=== PATIENT | male | born 1965 | race Two or more races ===

== ENCOUNTER 2018-09-17 13:06 | Observation (INO) | payer OTHER ==
[2018-09-17] MEDS ORDERED: IBUPROFEN 600 MG TABLET (FP) PO ONE ×2 (13:52→14:23)
--- NOTE | 2018-09-17 13:54 | PDOC ---
History of Present Illness - General Chief Complaint: CVA/TIA Stated Complaint: NINI LEG PAIN/ HEADACHE Time Seen by Provider: 09/17/18 13:23 History Source: Patient Exam Limitations: Language Barrier - History of Present Illness Initial Comments: History is obtained from family member who speaks Angolan at bedside. [employer] Specialist phones were being used for another patient. 52 yo m w a pmh of HTN and DM presents to the ER with 3 primary complaints. Firstly, what caused him to come to the ER was this extreme left leg pain that he experienced last night. He states he has been experiencing bilateral leg pain for close to 6 months which he has seen his PCP for and takes nortryptline for pain control. The patient states that last night he experienced a left sided occipital headache and head numbness that was associated with a significant amount of left leg weakness, numbness, tingling, and paresthesias. Secondly, the patient states he has been experiencing on and off left sided chest pain over the past few months that is triggered by physical activity and radiates to his left jaw and down his left arm. The chest pain is occasionally associated with numbness of the left arm and nausea but no emesis and occasional diaphoresis. He endorses freuent episodes of palpitations, but he is currently not experiencing them. He denies having any prior cardiac confirmed history. Lastly, the patient states his left hand and left leg have been changing colors when he gets exposed cold weathers. He says it originally turns blue, sometimes red and takes a suly time to turn back to its normal color. The patient endorses a strong smoking history and has trudy smoking close to a pack per day for many years but he is not sure for exactly how long. The patient was also a former heavy alcohol abuser but states that he stopped drinking profusely 5 months prior. He denies any recent fevers, chills, infections, SOB, difficulty breathing, blurry vision, neck pain, back pain, dysuria, frequency, urgency, or vertigo. PCP: Dr. Xavier in [place] PSH: Left hand surgery Social Hx: Smokes 1 PPD, former alcohol abuser - stopped drinking 5 months ago, denies other substance usage Allergies: NKA, NKDA Past History - Past Medical History Allergies/Adverse Reactions: Allergies Allergy/AdvReac Type Severity Reaction Status Date / Time No Known Allergies Allergy Verified 02/18/19 13:16 COPD: No Diabetes: Yes HTN: Yes Other medical history: back problems - Suicide/Smoking/Psychosocial Hx Smoking History: Current every day smoker Number of Cigarettes Smoked Daily: 10 Information on smoking cessation initiated: No Review of Systems - Review of Systems Able to Perform ROS?: Yes Comments:: CONSTITUTIONAL: Absent: fever, no chills, no fatigue EYES: Absent: visual changes ENT: Absent: ear pain, no sore throat CARDIOVASCULAR: Present: Chest pain, palpitations RESPIRATORY: Absent: cough, no SOB GI: Absent: abdominal pain, no nausea, no vomiting, no constipation, no diarrhea GENITOURINARY: Absent: dysuria, no frequency, no hematuria MUSKULOSKELETAL: Absent: back pain, no arthralgia, no myalgia SKIN: Present: left hand/foot discoloration. NEURO: Present: headache *Physical Exam - Vital Signs Last Vital Signs Temp Pulse Resp BP Pulse Ox 98.4 F 111 H 18 108/70 100 09/17/18 13:18 09/17/18 13:18 09/17/18 13:18 09/17/18 13:18 09/17/18 13:18 - Physical Exam Comments: GENERAL: Well-appearing, well-nourished. No apparent distress. HEENT: Normocephalic, atraumatic. PERRL, EOM intact. CARDIOVASCULAR: Tachycardic rate. Normal S1, S2. Regular rhythm. No M/R/G PULMONARY: No evidence of respiratory distress. Lungs clear to auscultation bilaterally. No wheezing, rales or rhonchi. ABDOMEN: Soft, non-distended, non-tender. EXTREMITIES: The patient experiences pain upon gentle touch of the left leg. Left hand appears dusky blue compared to the right. Normal ROM in all four extremities. No gross deformities. SKIN: Warm, dry. NEUROLOGICAL: Alert, awake, appropriate. Cranial nerves 2-12 intact. No deficits to light touch in face, upper extremities and lower extremities. No motor deficits in the in face, upper extremities and lower extremities. Normoreflexic in the upper and lower extremities. Normal speech. Toes are down-going bilaterally. Gait is normal without ataxia. PSYCHIATRIC: Cooperative. Good eye contact. Appropriate mood and affect. Moderate Sedation - Procedure Monitoring Vital Signs: Procedure Monitoring Vital Signs Temperature 98.4 F 02/18/19 13:18 Pulse Rate 111 H 09/17/18 13:18 Respiratory Rate 18 09/17/18 13:18 Blood Pressure 108/70 09/17/18 13:18 O2 Sat by Pulse Oximetry (%) 100 09/17/18 13:18 Heart Score/ECG Review - History History: Moderately suspicious - Electrocardiogram EKG: Normal - Age Age: 45-65 - Risk Factors Risk Factors Heart Score: Yes Hx Hypertension, Yes Hx Diabetes, Yes Smoking History Based on the list above the patient has:: >/=3 risk factors or Hx atherosclerotic disease - Troponin Troponin: </= normal limit - Score Heart Score - Total: 4 - ECG Intrepretation Rhythm: Regular Rhythm - [place]: Normal - ST and T Early Repolarization: No - ECG Impressions Normal ECG: No Tachycardia: Sinus ED Treatment Course - LABORATORY CBC & Chemistry Diagram: 09/17/18 14:20 09/17/18 14:20 - RADIOLOGY Radiology Studies Ordered: Category Date Time Status HEAD CT (STROKE) [CT] Stat CT Scan 09/17/18 13:50 Ordered CHEST PA & LAT [RAD] Stat Radiology 09/17/18 13:50 Ordered Medical Decision Making - Medical Decision Making History is obtained from family member who speaks Angolan at bedside. [employer]ist phones were being used for another patient. 52 yo m w a pmh of HTN and DM presents to the ER with 3 primary complaints. Firstly, what caused him to come to the ER was this extreme left leg pain that he experienced last night. He states he has been experiencing bilateral leg pain for close to 6 months which he has seen his PCP for and takes nortryptline for pain control. The patient states that last night he experienced a left sided occipital headache and head numbness that was associated with a significant amount of left leg weakness, numbness, tingling, and paresthesias. Secondly, the patient states he has been experiencing on and off left sided chest pain over the past few months that is triggered by physical activity and radiates to his left jaw and down his left arm. The chest pain is occasionally associated with numbness of the left arm and nausea but no emesis and occasional diaphoresis. He endorses freuent episodes of palpitations, but he is currently not experiencing them. He denies having any prior cardiac confirmed history. Lastly, the patient states his left hand and left leg have been changing colors when he gets exposed cold weathers. He says it originally turns blue, sometimes red and takes a suly time to turn back to its normal color. The patient endorses a strong smoking history and has trudy smoking close to a pack per day for many years but he is not sure for exactly how long. The patient was also a former heavy alcohol abuser but states that he stopped drinking profusely 5 months prior. VS: Tachycardic DDx IBNLT: CVA/TIA, ACS/VA, Peripheral neuropathy secondary to diabetes, arrhythmia, buegers smoking vasculitis disease, angina, raynaud phenomenon. Plan: Labs, Urine, head ct, CXR, ekg, analgesia, re-assess. - This patient's leg pain is most likely secondary to a diabetic oeripheral neuropathy. Given severe intensity last night with consider r/o recent stroke. - Head CT does not show evidence of new stroke. - On and off chest discomfort sounds most suspicious to me to be stable angina. First trop negative. HEART score is 4. - Hand discoloration can be a result of his heavy smoking, possible buegers disease vs raynaud. Patient endorsed to Dr. Parsons to be admitted to Tele Obs - Cardio consult to Dr. Childs placed in the ED. - Vascular Consult placed to Dr. Lynch *DC/Admit/Observation/Transfer Diagnosis at time of Disposition: Chest pain, Leg pain, left, Discoloration of skin of hand - Discharge Dispostion Condition at time of disposition: Stable Decision to Admit order: Yes - Referrals - Patient Instructions - Post Discharge Activity
[2018-09-17 14:46] LABS: BASO % 0.6 % (0-2.0); EOS % 2.3 % (0-4.5); HEMATOCRIT 42.7 % (35.4-49); HEMOGLOBIN 14.6 GM/dL (11.7-16.9); MCH 29.8 pg (25.7-33.7); MCHC 34.2 g/dl (32.0-35.9); MEAN CELL VOLUME 87.4 fl (80-96); MEAN PLT VOLUME 9.1 fl (7.5-11.1); MONO % 9.6 % (3.8-10.2); NEUT % 59.5 % (42.8-82.8); PLATELET COUNT 261 K/MM3 (134-434); RBC 4.88 M/mm3 (4.00-5.60)
[2018-09-17 15:00] LABS: INR 0.98 (0.83-1.09); PROTHROMBIN TIME (PATIENT) 11.6 SEC (9.7-13.0)
[2018-09-17 15:03] LABS: ALBUMIN 3.6 g/dl (3.4-5.0); ALK PHOS 86 U/L (45-117); ANION GAP 8 MMOL/L (8-16); BILIRUBIN,TOTAL 0.2 mg/dL (0.2-1); BLOOD UREA NITROGEN 19 mg/dL (7-18); CALCIUM 8.4 mg/dL (8.5-10.1); CHLORIDE 104 mmol/L (98-107); CO2 27 mmol/L (21-32); CREATININE 0.8 mg/dL (0.55-1.3); GLUCOSE,RANDOM 163 mg/dL (74-106); MAGNESIUM 2.6 mg/dL (1.8-2.4); POTASSIUM 4.4 mmol/L (3.5-5.1); SGOT/AST 9 U/L (15-37); SGPT/ALT 22 U/L (13-61); SODIUM 139 mmol/L (136-145); TOT PROT 7.1 g/dl (6.4-8.2)
--- NOTE | 2018-09-17 16:15 | PDOC ---
Attending Attestation - Resident Resident Name: Rodolfo Kna - ED Attending Attestation I have performed the following: I have examined & evaluated the patient, The case was reviewed & discussed with the resident, I agree w/resident's findings & plan, Exceptions are as noted - Medical Decision Making 09/17/18 16:15 A portion of this note was documented by scribe services under my direction. I have reviewed the details of the note, within reason, and agree with the documentation with the following case summary and management plan written by me. Patient treated in the ED. Nursing notes are reviewed and incorporated into the medical decision-making. Vital signs reviewed. Peripheral IV access obtained by the nurse, laboratory studies are drawn and sent, reviewed and interpreted by myself. Vital Signs Temp Pulse Resp BP Pulse Ox 98.4 F 111 H 18 108/70 100 09/17/18 13:18 09/17/18 13:18 09/17/18 13:18 09/17/18 13:18 09/17/18 13:18 52-year-old male with history of hypertension diabetes and peripheral neuropathy presents with left arm pain and left leg pain and chest discomfort. The patient reports intermittent last several months off chest discomfort. Not always exertional. Not always shortness of breath. The pain would come and go for several minutes at a time. However, the patient noticed in the last week of having worsening left arm and left leg numbness and occasional pain. States that he noticed a discoloration of the left hand about a week ago. Not associated with chest pain. Did have a left-sided headache some time ago but currently denies any. Chest pain history seemed atypical for acute coronary syndrome. However, given that the patient has risk factors, rule out mild PR. Obtain labs, chest x-ray, EKG and troponin. Left arm numbness and left leg numbness is concerning for potential stroke. We'll obtain a head CT. However, with a dusky blue discoloration, could this be peripheral vascular disorder. However, the patient' s left hand is warm and appears to have cap refill. Could there be collaterals her condition?. The patient is a duplex and potentially CTA. However, the patient should be admitted for further evaluation. Reynaud was considered but seems unlikely given that is not cold and the patient's hand is dusky constantly. 09/17/18 16:32 CBC, BMP 09/17/18 14:20 09/17/18 14:20 CMP Sodium 139 mmol/L (136-145) 09/17/18 14:20 Potassium 4.4 mmol/L (3.5-5.1) 09/17/18 14:20 Chloride 104 mmol/L (98-107) 09/17/18 14:20 Carbon Dioxide 27 mmol/L (21-32) 09/17/18 14:20 Anion Gap 8 MMOL/L (8-16) 09/17/18 14:20 BUN 19 mg/dL (7-18) H 09/17/18 14:20 Creatinine 0.8 mg/dL (0.55-1.3) 09/17/18 14:20 Creat Clearance w eGFR > 60 (>60) 09/17/18 14:20 Random Glucose 163 mg/dL (74-106) H 09/17/18 14:20 Calcium 8.4 mg/dL (8.5-10.1) L 09/17/18 14:20 Magnesium 2.6 mg/dL (1.8-2.4) H 09/17/18 14:20 Total Bilirubin 0.2 mg/dL (0.2-1) 09/17/18 14:20 AST 9 U/L (15-37) L 09/17/18 14:20 ALT 22 U/L (13-61) 09/17/18 14:20 Alkaline Phosphatase 86 U/L (45-117) 09/17/18 14:20 Creatine Kinase 51 U/L (26-308) 09/17/18 14:20 Troponin I < 0.02 ng/ml (0.00-0.05) 09/17/18 14:20 Total Protein 7.1 g/dl (6.4-8.2) 09/17/18 14:20 Albumin 3.6 g/dl (3.4-5.0) 09/17/18 14:20 Pt's labs reviewed. Pt awaiting imaging and admission to the hospital. Pt signed out to Dr. Ware for further evaluation and management. <Ted Galan - Last Filed: 09/17/18 16:32> - HPI HPI: 09/17/18 16:37 The patient is a 52 year old male, with a significant past medical history of HTN and DM, who presents to the emergency department with, multiple complaints. Patient endorses acute on chronic left leg pain (pt at baseline has blt leg pain and is on nortriptyline) with associated left occipital headache, numbness , weakness, and tingling to the occipital region. Patient endorses intermittent left sided chest pain for multiple months onsetting with physical activities radiating to left jaw and down left arm. Patient notes his left hand and left leg has been becoming discolored to a dusky blue and take a significant time to return to its color. Allergies: NKDA - Physicial Exam PE: 09/17/18 16:38 GENERAL: Awake, alert, and fully oriented, in no acute distress HEAD: No signs of trauma NECK: Normal ROM LUNGS: Breath sounds equal, clear to auscultation bilaterally. No wheezes, and no crackles HEART: Regular rate and rhythm, normal S1 and S2, no murmurs, rubs or gallops ABDOMEN: Soft, nontender, normoactive bowel sounds. No guarding, no rebound. No masses +NEUROLOGICAL: Decreased sensation to the left forearm. Left fingers and left foot dusky blue color, warm. Left hand 1+ radial pulses, warm. Left foot 1+ DP and warm. Alert, awake, appropriate. Cranial nerves 2-12 intact. Strength upper extremities and lower extremities 5/5. No motor deficits in the in face, upper extremities and lower extremities. No pronator drift. Normoreflexic in the upper and lower extremities. Normal speech. Toes are down-going bilaterally. <Zechariah Gonzales - Last Filed: 09/17/18 16:44> Attestations - Attestations 09/17/18 16:44 Documentation prepared by Zechariah Gonzales, acting as medical grade shoemaker for Ted Galan MD. <Zechariah Gonzales - Last Filed: 09/17/18 16:44>
[2018-09-17 20:40] LABS: URINE APPEARANCE CLEAR; URINE BILIRUBIN NEGATIVE (<2.0 mg/dL); URINE COLOR YELLOW; URINE GLUCOSE (UA) 3+ (NEGATIVE); URINE KETONE NEGATIVE (NEGATIVE); URINE LEUK ESTERASE NEGATIVE (NEGATIVE); URINE NITRITE NEGATIVE (NEGATIVE); URINE PROTEIN NEGATIVE (NEGATIVE)
--- NOTE | 2018-09-17 21:11 | HP ---
Admitting History and Physical - Primary Care Physician PCP: Charo Parsons - Admission History of Present Illness: History is obtained from family member who speaks Sammarinese at bedside. [employer] phones were being used for another patient. 52 yo m w a pmh of HTN and DM presents to the ER with 3 primary complaints. Firstly, what caused him to come to the ER was this extreme left leg pain that he experienced last night. He states he has been experiencing bilateral leg pain for close to 6 months which he has seen his PCP for and takes nortryptline for pain control. The patient states that last night he experienced a left sided occipital headache and head numbness that was associated with a significant amount of left leg weakness, numbness, tingling, and paresthesias. Secondly, the patient states he has been experiencing on and off left sided chest pain over the past few months that is triggered by physical activity and radiates to his left jaw and down his left arm. The chest pain is occasionally associated with numbness of the left arm and nausea but no emesis and occasional diaphoresis. He endorses freuent episodes of palpitations, but he is currently not experiencing them. He denies having any prior cardiac confirmed history. Lastly, the patient states his left hand and left leg have been changing colors when he gets exposed cold weathers. He says it originally turns blue, sometimes red and takes a suly time to turn back to its normal color. The patient endorses a strong smoking history and has trudy smoking close to a pack per day for many years but he is not sure for exactly how long. The patient was also a former heavy alcohol abuser but states that he stopped drinking profusely 5 months prior. He denies any recent fevers, chills, infections, SOB, difficulty breathing, blurry vision, neck pain, back pain, dysuria, frequency, urgency, or vertigo. history taken from ER records - Past Medical History Cardiovascular: Yes: HTN Rheumatology: Yes: Other (raynauds) Endocrine: Yes: Diabetes Mellitus - Smoking History Smoking history: Current every day smoker Aproximately how many cigarettes per day: 10 Home Medications - Allergies Allergies/Adverse Reactions: Allergies Allergy/AdvReac Type Severity Reaction Status Date / Time No Known Allergies Allergy Verified 09/17/18 13:16 - Home Medications Home Medications: Ambulatory Orders Dapagliflozin Propanediol [Farxiga] 10 mg PO DAILY 09/17/18 Glipizide 10 mg PO BID 09/17/18 Lisinopril [Prinivil] 20 mg PO DAILY 09/17/18 Metformin HCl [Glucophage] 1,000 mg PO BID 09/17/18 Nortriptyline HCl [Pamelor -] 10 mg PO DAILY 09/17/18 Physical Examination Vital Signs: Vital Signs Temperature 98.4 F 09/17/18 13:18 Pulse Rate 111 H 09/17/18 13:18 Respiratory Rate 18 09/17/18 13:18 Blood Pressure 108/70 09/17/18 13:18 O2 Sat by Pulse Oximetry (%) 100 09/17/18 13:18 Constitutional: Yes: No Distress HENT: Yes: Atraumatic Neck: Yes: Supple Cardiovascular: Yes: Regular Rate and Rhythm Respiratory: Yes: CTA Bilaterally Gastrointestinal: Yes: Normal Bowel Sounds Extremities: Yes: Other (left hand cold and bluis discoloration) Neurological: Yes: Alert, Oriented Labs: CBC, BMP 09/17/18 14:20 09/17/18 14:20 Imaging - Results Ultrasound: Report Reviewed Imaging - Results Ultrasound: Report Reviewed Problem List - Problems (1) Chest pain Assessment/Plan: fu troponins cardiology consult doing well Code(s): R07.9 - CHEST PAIN, UNSPECIFIED Qualifiers: Chest pain type: unspecified Qualified Code(s): R07.9 - Chest pain, unspecified (2) Discoloration of skin of hand Assessment/Plan: on meds Code(s): L81.9 - DISORDER OF PIGMENTATION, UNSPECIFIED (3) Leg pain, left Assessment/Plan: seen by neuro Code(s): M79.605 - PAIN IN LEFT LEG (4) Diabetes mellitus Assessment/Plan: on meds bgms Code(s): E11.9 - TYPE 2 DIABETES MELLITUS WITHOUT COMPLICATIONS (5) HTN (hypertension) Assessment/Plan: on meds monitor Code(s): I10 - ESSENTIAL (PRIMARY) HYPERTENSION Qualifiers: Hypertension type: essential hypertension Qualified Code(s): I10 - Essential (primary) hypertension Assessment/Plan Laboratory Tests 09/17/18 09/17/18 09/17/18 14:20 14:20 14:20 WBC 7.0 RBC 4.88 Hgb 14.6 Hct 42.7 MCV 87.4 MCH 29.8 MCHC 34.2 RDW 14.0 Plt Count 261 MPV 9.1 Absolute Neuts (auto) 4.2 Neutrophils % 59.5 Lymphocytes % 28.0 Monocytes % 9.6 Eosinophils % 2.3 Basophils % 0.6 Nucleated RBC % 0 PT with INR 11.60 INR 0.98 Sodium 139 Potassium 4.4 Chloride 104 Carbon Dioxide 27 Anion Gap 8 BUN 19 H Creatinine 0.8 Creat Clearance w eGFR > 60 Random Glucose 163 H Calcium 8.4 L Magnesium 2.6 H Total Bilirubin 0.2 AST 9 L ALT 22 Alkaline Phosphatase 86 Creatine Kinase 51 Troponin I < 0.02 Total Protein 7.1 Albumin 3.6 Urine Color Urine Appearance Urine pH Ur Specific [place] Urine Protein Urine Glucose (UA) Urine Ketones Urine Blood Urine Nitrite Urine Bilirubin Urine Urobilinogen Ur Leukocyte Esterase Blood Type Antibody Screen 09/17/18 09/17/18 14:20 20:15 WBC RBC Hgb Hct MCV MCH MCHC RDW Plt Count MPV Absolute Neuts (auto) Neutrophils % Lymphocytes % Monocytes % Eosinophils % Basophils % Nucleated RBC % PT with INR INR Sodium Potassium Chloride Carbon Dioxide Anion Gap BUN Creatinine Creat Clearance w eGFR Random Glucose Calcium Magnesium Total Bilirubin AST ALT Alkaline Phosphatase Creatine Kinase Troponin I Total Protein Albumin Urine Color Yellow Urine Appearance Clear Urine pH 5.0 Ur Specific [place] 1.032 Urine Protein Negative Urine Glucose (UA) 3+ H Urine Ketones Negative Urine Blood Negative Urine Nitrite Negative Urine Bilirubin Negative Urine Urobilinogen 2.0 Ur Leukocyte Esterase Negative Blood Type O POSITIVE Antibody Screen Negative Active Medications Generic Name Dose Route Start Last Admin Trade Name Freq PRN Reason Stop Dose Admin Glipizide 10 mg 09/17/18 22:00 Glucotrol - PO BID [facility] Lisinopril 20 mg 09/18/18 10:00 Prinivil PO DAILY [facility] Nicotine 21 mg 09/17/18 21:15 Nicoderm Patch - TD DAILY [facility] Non-Formulary Medication 10 mg 09/18/18 10:00 Dapagliflozin Propanediol [Farxiga] PO DAILY [facility] Non-Formulary Medication 1,000 mg 09/17/18 22:00 Metformin Hcl [Glucophage] PO BID [facility] Nortriptyline HCl 10 mg 09/18/18 10:00 Pamelor - PO DAILY [facility]
[2018-09-17] MEDS ORDERED: glipiZIDE 5 MG TABLET (FP) ONE (22:11)
[2018-09-17] MEDS ORDERED: metFORMIN HCL 500 MG TABLET (FP) ONE (22:12)
[2018-09-17] MEDS: glipiZIDE 10 MG TABLET (FP) PO SCH (22:15)
[2018-09-17] MEDS: metFORMIN HCL 500 MG TABLET (FP) PO SCH (22:15)
[2018-09-17] MEDS: NICOTINE 21 MG/24 HOURS TOPICAL PATCH TD SCH (23:43)
[2018-09-18 04:19] VITALS: BMI 23.9
[2018-09-18] MEDS: glipiZIDE 10 MG TABLET (FP) PO SCH ×2 (07:02→18:27)
[2018-09-18] MEDS: metFORMIN HCL 500 MG TABLET (FP) PO SCH ×2 (07:02→18:27)
[2018-09-18] MEDS ORDERED: PATIENT'S OWN MEDICATION (NON-FORMULARY) (Dapagliflozin Propanediol [Farxiga] 10 MG) PO SCH (10:00)
--- NOTE | 2018-09-18 10:38 | CON.CARD ---
Consult Consult Specialty:: Cardiology Referred by:: Dr. Parsons Reason for Consultation:: Cardiac evaluation - History of Present Illness Chief Complaint: Discoloration of extremity History of Present Illness: Patient is a 52 year old male of descent with underlying history of DM who presents with left leg pain in the thigh, left sided occipial headache, left sided chest discomfort triggered by physical activity radiating to jaw and left arm and palpitations and discoloration of fingers. Currently, he denies chest pain, SOB or palpitations. He denies paroxysmal nocturnal dyspnea or orthopnea. He denies fever or chills. He denies nausea, vomiting, diarrhea or abdominal pain. He denies headache or lightheadedness. - History Source History Provided By: Patient, Medical Record Limitations to Obtaining History: No Limitations - Past Medical History Cardio/Vascular: Yes: HTN Rheumatology: Yes: Other (? Raynaud) Endocrine: Yes: Diabetes Mellitus - Past Surgical History Additional Surgical History: Wrist surgery due to accident - Alcohol/Substance Use Hx Alcohol Use: Yes (quit 5 months ago) - Smoking History Smoking history: Current every day smoker Have you smoked in the past 12 months: Yes Aproximately how many cigarettes per day: 20 Home Medications - Allergies Allergies/Adverse Reactions: Allergies Allergy/AdvReac Type Severity Reaction Status Date / Time No Known Allergies Allergy Verified 09/17/18 13:16 - Home Medications Home Medications: Ambulatory Orders Dapagliflozin Propanediol [Farxiga] 10 mg PO DAILY 09/17/18 Glipizide 10 mg PO BID 09/17/18 Lisinopril [Prinivil] 20 mg PO DAILY 09/17/18 Metformin HCl [Glucophage] 1,000 mg PO BID 09/17/18 Nortriptyline HCl [Pamelor -] 10 mg PO DAILY 09/17/18 Family Disease History - Family Disease History Family History: Denies Review of Systems - Review of Systems Constitutional: denies: Chills, Fever Cardiovascular: reports: Chest Pain, Palpitations, Shortness of Breath Respiratory: reports: SOB. denies: Cough, Hemoptysis, Orthopnea, PND Gastrointestinal: denies: Abdominal Pain, Constipation, Diarrhea, Melena, Nausea , Rectal Bleeding, Vomiting Genitourinary: denies: Discharge, Hematuria Neurological: reports: Headache. denies: Dizziness, Seizure, Syncope Vital Signs: Vital Signs Temperature 97.5 F L 09/18/18 06:00 Pulse Rate 84 09/18/18 06:00 Respiratory Rate 20 09/18/18 06:00 Blood Pressure 126/74 09/18/18 06:00 O2 Sat by Pulse Oximetry (%) 99 09/17/18 23:00 Eyes: Yes: PERRL HENT: Yes: Atraumatic Neck: Yes: Supple, Trachea Midline Respiratory: Yes: CTA Bilaterally Gastrointestinal: Yes: Normal Bowel Sounds, Soft. No: Tenderness Cardiovascular: Yes: Regular Rate and Rhythm JVD: No Carotid Bruit: No PMI: Non-Displaced Heart Sounds: Yes: S1, S2 Murmur: No: Systolic Murmur, Diastolic Murmur Edema: No - Other Data Labs, Other Data: CBC, BMP 09/17/18 14:20 09/17/18 14:20 INR, PTT INR 0.98 (0.83-1.09) 09/17/18 14:20 Troponin, BNP 09/17/18 09/17/18 09/18/18 14:20 22:20 05:30 Troponin I < 0.02 < 0.02 < 0.02 Sinus tachycardia, no ST-T abnormality Echo: Pending Problem List - Problems (1) Diabetes mellitus Code(s): E11.9 - TYPE 2 DIABETES MELLITUS WITHOUT COMPLICATIONS (2) HTN (hypertension) Code(s): I10 - ESSENTIAL (PRIMARY) HYPERTENSION Qualifiers: Hypertension type: essential hypertension Qualified Code(s): I10 - Essential (primary) hypertension (3) Chest pain Code(s): R07.9 - CHEST PAIN, UNSPECIFIED Qualifiers: Chest pain type: unspecified Qualified Code(s): R07.9 - Chest pain, unspecified (4) Discoloration of skin of hand Code(s): L81.9 - DISORDER OF PIGMENTATION, UNSPECIFIED (5) Leg pain, left Code(s): M79.605 - PAIN IN LEFT LEG (6) Palpitation Code(s): R00.2 - PALPITATIONS Assessment/Plan 1. Chest pain, SOB and palpitation 2. LLE pain ruled out for DVT 3. Discoloration of digits ? Raynauds 4. HTN 5. DM PLAN: 1. Echocardiography to assess LV/RV and valvular function 2. Continue ACEI 3. Antibiotic coverage 4. Consider Rheumatology evaluation Further plans are to follow Sang H. Naz MD
[2018-09-18] MEDS: NICOTINE 21 MG/24 HOURS TOPICAL PATCH TD SCH (10:47)
[2018-09-18] MEDS: LISINOPRIL 20 MG TABLET (FP) PO SCH (10:47)
--- NOTE | 2018-09-18 11:14 | CONSULT ---
Consult - text type - Consultation Consultation Note: NEUROLOGY CONSULT GREATLY APPRECIATED: Events reviewed and discussed. Cardiology consult appreciated. [place] speaking but relatives at bedside help with translation. This 52 yo RH man works in [employer]. He chronic intermittent headaches over many years with recent exacerbation of headache and chronic, migratory, parasthesias in arms and legs x many years. These are much worse at night and interrupt sleep. PMHX: diabetes, HTN, Chronic insomnia, Medications include: dapagliflozin, glipizide, lisinopril, metformin, nortriptyline 10 mg Social history: nicotine dependence, ETOH abuse reportedly sober x 5 months Surgical hx: surgery to L wrist Head CT: Tiny, calcified areas in L and R frontal lobe, L parietal lobe EKG: sinus tach 111 After a fall related to ETOH approximately 10 years ago pt began experiencing "tingling" in his hands and subsequently his left foot started to feel "hot." He noticed it first began to affect his sleep and awaken him from sleep. He then began to have daytime symptoms, almost constant in nature and sought his PCP, who suggested it may be due to his "diabetes." He was then started on nortriptyline 2 months ago. He notes minimal improvement in pain and now new "electricity-like" pains in his L thigh. He also reports new onset L sided "tingling" sensation in his L occipital region approximately once a month that dissipates quickly without associated photophobia, phonophobia, nausea, vomiting or kinesiophobia. He reports never having seen a neurologist for these symptoms. NAYE: BP 120s/70s, Cor reg, (-) bruit, neck supple (-) SLR, old L wrist scar NEURO Exam: Mentation/Speech: Oriented to [facility]. August 2018. KEERTHI PETERSON and fredrick. CN II-XII: full nugent appreciated. Motor: No drift. Normal strength, tone bulk throughout. Reflexes 1+ in arms. Areflexic in legs. Toes downgoing. Coordination: No FTN dystaxia. Romberg - Sensation: Normal vibration in feet Gait: Normal including heels, toes. Impression: 1. Migraine Headaches 2. Restless Limbs Syndrome (RLS) possibly worsented by Medication (TCA's). 3. R/O Peripheral Neuropathy (diabetic vs. deficiency) Suggest: MRI of LS spine (C-) can be done as out patient. D/C nortriptyline Try pramipexole 0.125 mg qhs with further titration towards 0.25 mg BID after breakfast and dinner. Check B12, TSH, RPR, Fe++, Iron, Ferritin, TIBC, folate, A1c Neuro F/u as out-patient for evaluation of neuropathy and Rx of headaches and RLS Thank you very much, Blaine Tilley MD
--- NOTE | 2018-09-18 11:52 | EKG ---
Test Reason : Blood Pressure : / mmHG Vent. Rate : 102 BPM Atrial Rate : 102 BPM P-R Int : 156 ms QRS Dur : 082 ms QT Int : 328 ms P-R-T Axes : 064 -26 014 degrees QTc Int : 427 ms SINUS TACHYCARDIA OTHERWISE NORMAL ECG NO PREVIOUS ECGS AVAILABLE Confirmed by MD EMILIANA, JULIANA ([id number]) on 09/18/2018 11:51:57 AM Referred By: Confirmed By:JULIANA HOPSON MD
[2018-09-18] MEDS ORDERED: ACETAMINOPHEN 325 MG TABLET (FP) ONE (12:47)
--- NOTE | 2018-09-18 16:31 | ECHO ---
Name: JOSEFINA MIRAMONTES Exam:Adult Echocardiogram Study Date: 09/18/2018 02:24 PM Age: 52 yrs Reason For Study: chest pain, sob,palpitations,DM,HTN Height: 60 in Weight: 122 lb BSA: 1.5 m2 MMode/2D Measurements & Calculations IVSd: 0.67 cm Ao root diam: 3.3 cm LVIDd: 3.5 cm LA dimension: 1.9 cm LVIDs: 2.3 cm ACS: 1.9 cm LVPWd: 0.93 cm IVSs: 1.0 cm LVPWs: 0.98 cm EDV(Teich): 51.1 ml ESV(Teich): 18.6 ml Doppler Measurements & Calculations MV E max eulalio: 65.2 cm/sec Ao V2 max: 123.5 cm/sec MV A max eulalio: 79.5 cm/sec Ao max P.1 mmHg MV E/A: 0.82 Ao V2 mean: 86.2 cm/sec Ao mean P.5 mmHg Ao V2 VTI: 18.5 cm TR max eulalio: 210.7 cm/sec Med Peak E' Eulalio: 6.0 cm/sec TR max P.8 mmHg Med E/e': 10.8 Lat Peak E' Eulalio: 10.7 cm/sec Lat E/e': 6.1 Procedure A two-dimensional transthoracic echocardiogram with color flow and Doppler was performed. The study w as technically limited with all images being suboptimal in quality. The patient was in normal sinus rhyt hm during the exam. Left Ventricle The left ventricular size, thickness and function are normal. Ejection Fraction = 65%. Grade I diasto lic dysfunction, (abnormal relaxation pattern). Right Ventricle The right ventricle is normal in size and function. Atria Normal left and right atrial size and function. Mitral Valve The mitral valve is grossly normal. There is trace mitral regurgitation. Tricuspid Valve The tricuspid valve is not well visualized, but is grossly normal. There is trace tricuspid regurgita tion. Right ventricular systolic pressure is normal. Aortic Valve The aortic valve is not well visualized. No hemodynamically significant valvular aortic stenosis. No aortic regurgitation is present. Pulmonic Valve The pulmonic valve is not well visualized. Great Vessels The aortic root is normal size. Pericardium/Pleura There is no pericardial effusion. Interpretation Summary The study was technically limited with all images being suboptimal in quality. The left ventricular size, thickness and function are normal There is trace mitral regurgitation. There is trace tricuspid regurgitation. No hemodynamically significant valvular aortic stenosis. Grade I diastolic dysfunction, (abnormal relaxation pattern). Right ventricular systolic pressure is normal. MD Santi Solorzano 09/18/2018 04:31 PM
--- NOTE | 2018-09-18 17:51 | PN ---
Progress Note, Physician - Current Medication List Current Medications: Active Medications Glipizide (Glucotrol -) 10 mg PO BIDAC [facility] Last Admin: 09/18/18 07:02 Dose: 10 mg Lisinopril (Prinivil) 20 mg PO DAILY [facility] Last Admin: 09/18/18 10:47 Dose: 20 mg Metformin HCl (Glucophage -) 1,000 mg PO BIDAC [facility] Last Admin: 09/18/18 07:02 Dose: 1,000 mg Nicotine (Nicoderm Patch -) 21 mg TD DAILY [facility] Last Admin: 09/18/18 10:47 Dose: 21 mg Non-Formulary Medication (Dapagliflozin Propanediol [Farxiga]) 10 mg PO DAILY [facility] Pramipexole Dihydrochloride (Mirapex -) 0.125 mg PO 1999 [facility] - Objective Vital Signs: Vital Signs Temperature 98.4 F 09/18/18 14:00 Pulse Rate 100 H 09/18/18 14:00 Respiratory Rate 20 09/18/18 14:00 Blood Pressure 132/72 09/18/18 14:00 O2 Sat by Pulse Oximetry (%) 99 09/18/18 11:00 Constitutional: Yes: No Distress HENT: Yes: Atraumatic Neck: Yes: Supple Cardiovascular: Yes: Regular Rate and Rhythm Respiratory: Yes: CTA Bilaterally Gastrointestinal: Yes: Normal Bowel Sounds Extremities: Yes: WNL Edema: No Peripheral Pulses WNL: Yes Neurological: Yes: Alert, Oriented Labs: CBC, BMP 09/17/18 14:20 09/17/18 14:20 INR, PTT INR 0.98 (0.83-1.09) 09/17/18 14:20 Problem List - Problems (1) Chest pain Assessment/Plan: troponins negative doing well Code(s): R07.9 - CHEST PAIN, UNSPECIFIED Qualifiers: Chest pain type: unspecified Qualified Code(s): R07.9 - Chest pain, unspecified (2) Discoloration of skin of hand Assessment/Plan: on meds Code(s): L81.9 - DISORDER OF PIGMENTATION, UNSPECIFIED (3) Leg pain, left Assessment/Plan: seen by neuro Code(s): M79.605 - PAIN IN LEFT LEG
[2018-09-18] MEDS ORDERED: PRAMIPEXOLE DIHYDROCHLORIDE 0.125 MG TABLET PO SCH (20:00)
[2018-09-18] MEDS ORDERED: NORTRIPTYLINE HCL 10 MG CAPSULE PO SCH (22:00)
[2018-09-19] MEDS: metFORMIN HCL 500 MG TABLET (FP) PO SCH (06:24)
[2018-09-19] MEDS: glipiZIDE 10 MG TABLET (FP) PO SCH (06:24)
[2018-09-19 09:51] VITALS: BP 126/80; PULSE 94; TEMP 98
--- NOTE | 2018-09-19 10:15 | CONSULT ---
Consult Consult Specialty:: Vascular Surgery - History of Present Illness History of Present Illness: 52 year old man complains of pain and numbness in arms and legs for many years. These are much worse at night and interrupt sleep. He has no history of vascular disease. He has had no pain when walking. He has noted cold hands and feet with skin color change when exposed to cold temperatures. He is a long- term smoker. - Past Medical History Cardio/Vascular: Yes: HTN Rheumatology: Yes: Other (raynauds) Endocrine: Yes: Diabetes Mellitus - Past Surgical History Additional Surgical History: Wrist surgery due to accident - Alcohol/Substance Use Hx Alcohol Use: Yes (quit 5 months ago) - Smoking History Smoking history: Current every day smoker Have you smoked in the past 12 months: Yes Aproximately how many cigarettes per day: 10 Home Medications - Allergies Allergies/Adverse Reactions: Allergies Allergy/AdvReac Type Severity Reaction Status Date / Time No Known Allergies Allergy Verified 09/17/18 13:16 - Home Medications Home Medications: Ambulatory Orders Dapagliflozin Propanediol [Farxiga] 10 mg PO DAILY 09/17/18 Glipizide 10 mg PO BID 09/17/18 Lisinopril [Prinivil] 20 mg PO DAILY 09/17/18 Metformin HCl [Glucophage] 1,000 mg PO BID 09/17/18 Nortriptyline HCl [Pamelor -] 10 mg PO DAILY 09/17/18 Physical Exam Vital Signs: Vital Signs Temperature 98 F 09/19/18 09:51 Pulse Rate 94 H 09/19/18 09:51 Respiratory Rate 20 09/19/18 09:51 Blood Pressure 126/80 09/19/18 09:51 O2 Sat by Pulse Oximetry (%) 97 09/18/18 21:02 Constitutional: Yes: No Distress Eyes: Yes: WNL Neck: Yes: Supple Cardiovascular: Yes: Regular Rate and Rhythm Gastrointestinal: Yes: Soft Edema: No Peripheral Pulses WNL: Yes (Palpable radial and pedal pulses bilaterally) Labs: CBC, BMP 09/17/18 14:20 09/17/18 14:20 Imaging - Results Ultrasound: Report Reviewed (No DVT in arms or legs) Problem List - Problems (1) Discoloration of skin of hand Assessment/Plan: Symptoms suggest Raynaud's syndrome which may be related to his smoking causing vasospasm. There is no evidence for significant arterial insufficiency. Other symptoms appear neurogenic. If concerned about possible vasculitis ESR and CRP should be ordered. Code(s): L81.9 - DISORDER OF PIGMENTATION, UNSPECIFIED
[2018-09-19] MEDS: LISINOPRIL 20 MG TABLET (FP) PO SCH (11:00)
[2018-09-19] MEDS: NICOTINE 21 MG/24 HOURS TOPICAL PATCH TD SCH (11:00)
--- NOTE | 2018-09-19 11:53 | PN ---
Progress Note (short form) - Note Progress Note: NEUROLOGY CONSULT GREATLY APPRECIATED: Events reviewed and discussed. Vascular consult read and appreciated. No reports of headache at this time Started on pramipexole 0.125 mg qhs Reports "electricity" pain in L thigh little better along with sleep, bothered by IV in R arm and unable to change position in bed Reports back pain only when laying down too long in bed or when sleeping b12 418 folate 18 TSH 0.70 RPR non-reactive A1c 7.2 NAYE: (-) SLR NEURO Exam: Mentation/Speech: Normal. CN II-XII: full nugent appreciated. Motor: Normal strength, tone bulk throughout. Areflexic in legs. Coordination: No FTN dystaxia. Sensation: Normal vibration in feet Impression: 1. Migraine Headaches 2. Restless Limbs Syndrome (RLS) possibly worsented by Medication (TCA's). 3. R/O Peripheral Neuropathy (diabetic vs. deficiency) Suggest: Continue pramipexole 0.125 mg qhs with further titration towards 0.25 mg BID after breakfast and dinner. Iron studies pending Neuro F/u as out-patient for evaluation of neuropathy and Rx of headaches and RLS Patient response to medication will determine need for MRI of LS spine (C- ) Thank you very much. Blaine Tilley MD
--- NOTE | 2018-09-19 13:11 | PN ---
Progress Note, Physician History of Present Illness: No further cp, dyspnea, palpitations, ruled out for [place], no events on telemetry. - Current Medication List Current Medications: Active Medications Glipizide (Glucotrol -) 10 mg PO BIDAC [facility] Last Admin: 09/19/18 06:24 Dose: 10 mg Lisinopril (Prinivil) 20 mg PO DAILY [facility] Last Admin: 09/19/18 11:00 Dose: 20 mg Metformin HCl (Glucophage -) 1,000 mg PO BIDAC [facility] Last Admin: 09/19/18 06:24 Dose: 1,000 mg Nicotine (Nicoderm Patch -) 21 mg TD DAILY [facility] Last Admin: 09/19/18 11:00 Dose: 21 mg Non-Formulary Medication (Dapagliflozin Propanediol [Farxiga]) 10 mg PO DAILY [facility] Pramipexole Dihydrochloride (Mirapex -) 0.125 mg PO 2000 [facility] Last Admin: 09/18/18 22:19 Dose: 0.125 mg - Objective Vital Signs: Vital Signs Temperature 98 F 09/19/18 09:51 Pulse Rate 94 H 09/19/18 09:51 Respiratory Rate 20 09/19/18 09:51 Blood Pressure 126/80 09/19/18 09:51 O2 Sat by Pulse Oximetry (%) 97 09/18/18 21:02 Constitutional: Yes: No Distress, Calm, Thin Neck: Yes: Supple Cardiovascular: Yes: Regular Rate and Rhythm Respiratory: Yes: Regular, CTA Bilaterally Gastrointestinal: Yes: Normal Bowel Sounds, Soft Edema: No Labs: CBC, BMP 09/17/18 14:20 09/17/18 14:20 INR, PTT INR 0.98 (0.83-1.09) 09/17/18 14:20 - ....Imaging EKG: Report Reviewed (Tele: NSR) Problem List - Problems (1) Chest pain Code(s): R07.9 - CHEST PAIN, UNSPECIFIED Qualifiers: Chest pain type: unspecified Qualified Code(s): R07.9 - Chest pain, unspecified (2) Diabetes mellitus Code(s): E11.9 - TYPE 2 DIABETES MELLITUS WITHOUT COMPLICATIONS Qualifiers: Diabetes mellitus type: type 2 Diabetes mellitus fci insulin use: without fci use Diabetes mellitus complication status: with neurologic complications Diabetes mellitus complication detail: with unspecified neuropathy Qualified Code(s): E11.40 - Type 2 diabetes mellitus with diabetic neuropathy, unspecified (3) Discoloration of skin of hand Code(s): L81.9 - DISORDER OF PIGMENTATION, UNSPECIFIED (4) HTN (hypertension) Code(s): I10 - ESSENTIAL (PRIMARY) HYPERTENSION Qualifiers: Hypertension type: essential hypertension Qualified Code(s): I10 - Essential (primary) hypertension (5) Palpitation Code(s): R00.2 - PALPITATIONS Assessment/Plan 09/19/2018 Echo: Normal LV size and fxn, tr MR, TR 1. Chest pain, SOB and palpitations since resolved 2. LLE pain ruled out for DVT 3. Discoloration of digits ? Raynauds 4. HTN 5. DM with peripheral neuropathy 6. Tobacco abuse 7. Restless leg syndrome PLAN: 1. Continue lisinopril 20 qd 2. D/c telemetry 3. No further inpatient CV evaluation warranted.
--- NOTE | 2018-09-19 14:27 | DS ---
Physical Examination Vital Signs: Vital Signs Temperature 98 F 09/19/18 09:51 Pulse Rate 94 H 09/19/18 09:51 Respiratory Rate 20 09/19/18 13:00 Blood Pressure 126/80 09/19/18 09:51 O2 Sat by Pulse Oximetry (%) 97 09/19/18 13:00 Constitutional: Yes: No Distress HENT: Yes: Atraumatic Neck: Yes: Supple Cardiovascular: Yes: Regular Rate and Rhythm Respiratory: Yes: CTA Bilaterally Gastrointestinal: Yes: Normal Bowel Sounds Extremities: Yes: WNL Labs: CBC, BMP 09/17/18 14:20 09/17/18 14:20 Discharge Summary Reason For Visit: DISCOLORATION OF SKIN OF HAND, PAIN OF LOWER EXTER Current Active Problems Chest pain (Acute) Diabetes mellitus (Acute) Discoloration of skin of hand (Acute) HTN (hypertension) (Acute) Leg pain, left (Acute) Palpitation (Acute) Condition: Stable - Instructions Diet, Activity, Other Instructions: follow up with dr boggs 2 weeks stop smoking Referrals: Blaine Tilley MD [Staff Physician] - hCaro Boggs MD [Staff Physician] - Herno Childs MD [Staff Physician] - ON STAFF,NOT [Primary Care Provider] - Disposition: HOME - Home Medications Comprehensive Discharge Medication List: Ambulatory Orders Dapagliflozin Propanediol [Farxiga] 10 mg PO DAILY 09/17/18 Glipizide 10 mg PO BID 09/17/18 Lisinopril [Prinivil] 20 mg PO DAILY 09/17/18 Metformin HCl [Glucophage] 1,000 mg PO BID 09/17/18 Nortriptyline HCl [Pamelor -] 10 mg PO DAILY 09/17/18 al home
[2018-09-20 04:15] LABS: SERUM IRON SATURATION 33 % (15-55); TOTAL IRON BINDING CAPACITY 294 ug/dL (250-450); UIBC 197 ug/dL (111-343)
== END 2018-09-19 15:21 | disposition home or self-care (01) ==
LOC: JER 13:06 → JERBED 16:40 → J4W 22:43
PROVIDERS: ADMIT Internal Medicine; ATTEND Internal Medicine
DX: R07.9 Chest pain, unspecified (principal); M79.605 Pain in left leg; L81.9 Disorder of pigmentation, unspecified; R00.2 Palpitations; I10 Essential (primary) hypertension; E11.9 Type 2 diabetes mellitus without complications; F17.210 Nicotine dependence, cigarettes, uncomplicated; F10.21 Alcohol dependence, in remission; G43.909 Migraine, unspecified, not intractable, without status migrainosus; G25.81 Restless legs syndrome
CPT/HCPCS: 36415; 70450-TC; 71046-TC-FY; 80053; 81003; 82550; 82607; 82746; 82962; 83036; 83540; 83550; 83735; 84443; 84484; 85025; 85610; 85651; 86140; 86593; 86850; 86900; 86901; 93005; 93010; 93306-TC; 93971; 93971-TC; 99283-25; G0378